=== PATIENT | female | born 2005 | race Caucasian/White ===

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

== ENCOUNTER 2024-02-26 19:45 | Emergency (ER) | payer OTHER ==
[~2024-02-26] VITALS: Ht 160 cm; Wt 61.2 kg
[2024-02-26 20:05] VITALS: BP 135/88
[2024-02-26] MEDS ORDERED: VENL150ER PO (20:10)
[2024-02-26] MEDS ORDERED: OPTH RIGHTEAR ONE (20:25)
[2024-02-26] MEDS ORDERED: OFLOXACIN 0.3% RIGHTEAR ONE (20:25)
[2024-02-26] MEDS ORDERED: Diphth,Pertuss(Acell),Tet Vac 0.5 ML VIAL IM ONE (20:30)
[2024-02-26] MEDS ORDERED: CIPROFLOX-DEXA7.5 ML RIGHTEAR (20:30)
[2024-02-26] MEDS ORDERED: Ofloxacin 0.3% Otic Soln 5 ML RIGHTEAR ONE (20:55)
== END 2024-02-26 21:00 | disposition home or self-care (01) ==
LOC: ER 19:45
DX: S09.21XA Traumatic rupture of right ear drum, initial encounter (principal); W22.8XXA Striking against or struck by other objects, initial encounter; Z79.899 Other long term (current) drug therapy
CPT/HCPCS: 90471; 90715; 99282-25; A9270